=== PATIENT | male | born 1940 | race Caucasian/White ===

== ENCOUNTER 2018-12-01 16:05 | Observation (INO) | payer MEDICARE, BC ==
[2018-12-01 16:20] LABS: #Basophils 0.1 thou/uL (0.0-0.2); #Eosinphils 0.2 thou/uL (0.0-0.7); #Lymphocytes 1.4 thou/uL (1.20-3.40); %Basophils 0.8 % (0.0-1.0); %Eosinophils 2.4 % (0.0-10.0); %Lymphocytes 17.9 % (21.0-51.0); %Monocytes 12.9 % (0.0-10.0); Hemoglobin 16.2 g/dL (14.0-18.0); Mean Corpuscular HGB CONC 33.2 g/dL (32.0-36.0); Mean Corpuscular Hemoglobin 29.1 pg (27.0-31.0); Mean Corpuscular Volume 87.5 fL (78.0-98.0); Platelet Count 232 thou/uL (130-400); Red Blood Cell (RBC) Count 5.58 mill/uL (4.70-6.10); White Blood Cell (WBC) Count 7.5 thou/uL (4.8-10.8)
[2018-12-01 16:27] LABS: PTT 28.7 SEC (22.9-36.1); Prothrombin Time 13.2 SEC (12.0-14.7)
--- NOTE | 2018-12-01 16:28 | CT ---
CT BRAIN WITHOUT CONTRAST: HISTORY: Slurred speech status resolved. Stroke protocol FINDINGS: No evidence of acute infarct, hemorrhage, midline shift or abnormal extra-axial fluid collections is seen. The ventricular size is appropriate and the basilar cisterns are patent. The bony calvarium is intact. The visualized paranasal sinuses and mastoid air cells are well aerated. IMPRESSION: No CT evidence of acute intracranial process. Discussed over the telephone with ER physician Dr. Rodriguez at 4:24 PM
[2018-12-01 16:33] LABS: ALT (SGPT) 20 U/L (8-55); AST (SGOT) 12 U/L (5-34); Albumin 4.5 g/dL (3.4-4.8); Alkaline Phosphatase 84 U/L (40-150); Anion Gap 9 mmol/L (10-20); BUN (Urea Nitrogen) 16 mg/dL (8.4-25.7); Bilirubin, Total 0.6 mg/dL (0.2-1.2); CK (CPK) 45 U/L (30-200); Calc. Creatinine Clearance 0 mL/min (70-130); Calcium 10.8 mg/dL (7.8-10.44); Carbon Dioxide 32 mmol/L (23-31); Chloride 99 mmol/L (98-107); Estimated GFR-MDRD 57; Globulin 2.9 g/dL (2.4-3.5); Glucose 205 mg/dL (83-110); Protein, Total 7.4 g/dL (5.8-8.1); Sodium 136 mmol/L (136-145)
[2018-12-01] MEDS ORDERED: Aspirin Chewable 81 MG TAB ONE (17:44)
[2018-12-01 18:53] VITALS: BMI 35.1
[2018-12-01] MEDS ORDERED: Senokot S 8.6-50 MG TAB PO PRN (21:03)
[2018-12-01] MEDS ORDERED: Acetaminophen 325 MG TAB PO PRN (21:03)
[2018-12-02 05:10] LABS: #Eosinphils 0.2 thou/uL (0.0-0.7); #Lymphocytes 1.6 thou/uL (1.20-3.40); #Monocytes 1.1 thou/uL (0.11-0.59); #Neutrophils 5.8 thou/uL (1.40-6.50); %Basophils 0.5 % (0.0-1.0); %Eosinophils 2.6 % (0.0-10.0); %Lymphocytes 17.9 % (21.0-51.0); Hemoglobin 14.8 g/dL (14.0-18.0); Mean Corpuscular HGB CONC 33.5 g/dL (32.0-36.0); Mean Corpuscular Hemoglobin 29.3 pg (27.0-31.0); Mean Corpuscular Volume 87.3 fL (78.0-98.0); Mean Platelet Volume 7.8 fL (7.4-10.4); Platelet Count 190 thou/uL (130-400); RBC Distribution Width 12.2 % (11.5-14.5); Red Blood Cell (RBC) Count 5.07 mill/uL (4.70-6.10); White Blood Cell (WBC) Count 8.7 thou/uL (4.8-10.8)
--- NOTE | 2018-12-02 05:13 | HP ---
CHIEF COMPLAINT: Expressive aphasia. HISTORY OF PRESENT ILLNESS: Mr. Wei is a 78-year-old male, who was at his orthopedic office today having his left knee evaluated as he has been having pain in that knee over the last week. While he was there, orthopedic doctor noticed that he was having some slurred speech, word salad, expressive aphasia, lasted about 30 minutes. The patient reports that he could not tell the doctor anything. He was trying to tell him that his was coming and some other pertinent things, but could not get the words out. The patient denies any weakness or numbness. Family reports that he has had a small stroke in the past. The patient reports that this was after what he considers a reaction to Viagra. reports that he has had some residual right-sided facial droop since that time, but reports that today it looks worse than normal. The patient denies any headache, nausea, vomiting, chest pain, or shortness of breath and was subsequently admitted to the stroke unit for further management. REVIEW OF SYSTEMS: Reports speech changes earlier today, slurred speech, but reports it is much better. does report that right side of his face is more drooped than normal. All other systems are reviewed and are negative unless mentioned in the HPI. PAST MEDICAL HISTORY: History of prostate cancer, which was treated with some radiation, hypertension, and hyperlipidemia. PAST SURGICAL HISTORY: He has had bilateral knee replacements. PSYCHIATRIC HISTORY: None. SOCIAL HISTORY: Drinks socially. Denies any drug use. Denies any smoking history. KNOWN ALLERGIES: None. CURRENT MEDICATIONS: 1. Losartan/hydrochlorothiazide once a day. 2. Pravastatin . 3. Flomax 0.4 mg daily. 4. Aspirin 81 mg twice a week. PHYSICAL EXAMINATION: VITAL SIGNS: Blood pressure 153/67, pulse is 76, respirations 16, pO2 sats 97% on room air, temp is 98.6. CONSTITUTIONAL: The patient appears nontoxic, is pain-free. He is alert and oriented to person, place, and time. HEENT: Head is atraumatic and normocephalic. Eyes; eyelids are normal to inspection. Pupils are equally round and reactive to light. ENT; mouth exam is normal. Mucous membranes are moist. NECK: Normal range of motion. Trachea is midline. RESPIRATORY/CHEST: Breath sounds are clear. Movement is symmetrical. CARDIOVASCULAR: Regular heart rate and rhythm. Heart sounds are normal. ABDOMEN: Nontender. Bowel sounds are heard. BACK: Normal inspection. No CVA tenderness. EXTREMITIES: Upper extremity, motor strength is normal. Range of motion is normal. Sensation is intact. Radial pulses are normal. Lower extremity, normal inspection. Normal range of motion. Motor strength is normal. Sensation is intact. Pedal pulses are equal bilaterally. No edema is noted. NEUROLOGIC: He is alert and oriented to person, place, and time. Speech is normal. Memory is normal. Cranial nerves are intact. No focal motor or sensory deficits. SKIN: Warm and dry, normal in color. PSYCH: Normal affect. IMAGING: EKG in the emergency room shows a normal sinus rhythm, beats per minute 85, axis is left. A CT of the brain shows no acute findings. ASSESSMENT AND PLAN: 1. Expressive aphasia, slurred speech, lasting for 30 minutes today with some residual right-sided facial droop. We will order an MRI of the brain in the morning, carotid ultrasounds, and echocardiogram. We will check lipids, TSH, coagulation panel. 2. Hypertension. We will restart home medications. 3. History of prostate cancer with difficulty with the urinary stream. We will continue the Flomax. Full-strength aspirin has been given. We will continue daily. 4. PT/OT. Stroke Team has been requested for an evaluation. 5. Deep venous thrombosis and gastrointestinal prophylaxis will be started. 6. Hospital course will be dependent on clinical findings. Job ID: [id number]
[2018-12-02 05:36] LABS: ALT (SGPT) 17 U/L (8-55); AST (SGOT) 10 U/L (5-34); Albumin 3.8 g/dL (3.4-4.8); Alkaline Phosphatase 68 U/L (40-150); Anion Gap 11 mmol/L (10-20); BUN (Urea Nitrogen) 15 mg/dL (8.4-25.7); Bilirubin, Total 0.7 mg/dL (0.2-1.2); Calc. Creatinine Clearance 86 mL/min (70-130); Calcium 9.7 mg/dL (7.8-10.44); Carbon Dioxide 28 mmol/L (23-31); Cardiac Risk 4.4 (Less than 4.5); Chloride 102 mmol/L (98-107); Cholesterol 151 mg/dl (< 200 Desired); Estimated GFR-MDRD 71; Globulin 2.5 g/dL (2.4-3.5); Glucose 154 mg/dL (83-110); HDL Cholesterol 34 mg/dL (>60 Neg Risk); LDL Cholesterol, Calculated 94 mg/dL; Potassium 3.6 mmol/L (3.5-5.1); Protein, Total 6.3 g/dL (5.8-8.1); Sodium 137 mmol/L (136-145); Triglycerides 117 mg/dL (Less than 150)
--- NOTE | 2018-12-02 08:32 | ULT ---
BILATERAL CAROTID DUPLEX ULTRASOUND: HISTORY: Slurred speech TECHNIQUE: Grayscale, color-flow and spectral Doppler ultrasound imaging of the extracranial carotid artery syst ems was performed bilaterally. FINDINGS: Minimal plaque is seen. The peak systolic velocity in the right ICA measures 49 cm/s with an end-diastolic velocity of 7 cm/s and a systolic ratio of 0.52. The peak systolic velocity in the left ICA measures 78 cm/s with an end-diastolic velocity of 16 cm/s and a systolic ratio of 0.66. Antegrade flow is seen in the left vertebral artery. Flow was not obtained in the right vertebral art priscila. IMPRESSION: No evidence of hemodynamically significant stenosis in either ICA.
[2018-12-02] MEDS ORDERED: Losartan/Hydrochlorothiazide 100 mg/25 mg Tablet PO SCH (09:00)
[2018-12-02] MEDS ORDERED: Famotidine 20 MG TAB PO SCH (09:00)
[2018-12-02] MEDS ORDERED: Enoxaparin Sodium 40 MG/0.4 ML SYRINGE SC SCH (09:00)
[2018-12-02] MEDS ORDERED: Aspirin 325 MG TAB PO SCH (09:00)
--- NOTE | 2018-12-02 12:56 | MRI ---
MRI BRAIN NONCONTRAST: 12/02/18 HISTORY: 78-year-old male with acute stroke symptoms, dysarthria and facial droop. TIA. FINDINGS: The ventricles are normal in size and configuration. There is no restricted diffusion, midline shift or any other mass effect, recent intraaxial hemorrhage, or extraaxial fluid collection. There are m any small T2-hyperintensities in the cerebral white matter consistent with mild chronic ischemic whit e matter changes due to mild microvascular atherosclerosis. IMPRESSION: 1. Mild-moderate chronic ischemic white matter changes. 2. Otherwise negative. jnr POS: [facility]
[2018-12-02 16:03] VITALS: BP 154/71; TEMP 98.3
[2018-12-02] MEDS ORDERED: Tamsulosin HCl 0.4 MG CAP PO SCH (21:00)
[2018-12-02] MEDS ORDERED: Pravastatin Sodium 40 MG TAB PO SCH (21:00)
--- NOTE | 2018-12-03 04:19 | DIS ---
DATE OF ADMISSION: 12/01/2018 DATE OF DISCHARGE: 12/02/2018 CHIEF COMPLAINT: Expressive aphasia. FINAL DIAGNOSES: 1. Expressive aphasia/slurred speech, cerebrovascular accident workup negative, likely transient ischemic attack in the setting of multiple risk factors as outlined below. 2. Untreated type 2 diabetes mellitus, last hemoglobin A1c 7.9% per patient. 3. Hyperlipidemia. 4. Hypertension. 5. Obesity. 6. Osteoarthritis, status post bilateral knee replacements. 7. History of prostate cancer. Brief. HOSPITAL COURSE: The patient is a very pleasant 78-year-old male with past medical history as outlined above, who was visiting his orthopedic surgeon for outpatient followup, when he began having some slurred speech, word salad, and expressive aphasia, which lasted about 30 minutes. The patient reports that he could not tell his doctor anything. He was trying to tell him that his was coming up to the office, but could not use any words. He denied any focal weaknesses or numbness. The patient presented to the [facility] for further workup and treatment. He did undergo a stroke workup, which was negative. CT of the brain showed no acute intracranial abnormality. His MRI showed no stroke, but he did have mild to moderate chronic ischemic white matter changes. Echocardiogram showed normal left ventricular systolic function with diastolic dysfunction noted. His carotid Doppler was negative. The patient's symptoms have completely resolved. He states to me that he quit taking his aspirin daily, but rather twice a week as he saw on a news program. The patient states that his last hemoglobin A1c was 7.9%. It will be rechecked soon through his primary care physician. CONDITION AT DISCHARGE: Stable. DISCHARGE DISPOSITION: Home. DISCHARGE MEDICATIONS: He will continue his home medications of: 1. Losartan/hydrochlorothiazide 100 mg/25 mg tablet one tablet p.o. daily. 2. Pravastatin 80 mg tablet daily. 3. Tamsulosin 0.4 mg tablet daily. New medication will be: 1. Aspirin 81 mg one tablet p.o. daily. FOLLOWUP: He already has a followup scheduled with his primary care physician in the next 7 to 10 days. He will continue aggressive risk factor modification including diet, exercise, and continue his aspirin. My recommendation is that he also aggressively treat his type 2 diabetes mellitus given his recent TIA. All findings have been discussed with the patient at length. The care of this patient has been discussed with Dr. Coburn who agrees with the plan and discharge as above. The patient will return to the hospital with any return of his symptoms. Job ID: [id number]
== END 2018-12-02 19:29 | disposition home or self-care (01) ==
LOC: ERS 16:05 → 2SE 18:45
PROVIDERS: ADMIT Internal Medicine; ATTEND Internal Medicine
DX: R47.01 Aphasia (principal); R47.81 Slurred speech; E11.9 Type 2 diabetes mellitus without complications; E78.5 Hyperlipidemia, unspecified; I10 Essential (primary) hypertension; E66.9 Obesity, unspecified; Z68.35 Body mass index [BMI] 35.0-35.9, adult; Z85.46 Personal history of malignant neoplasm of prostate; Z79.82 Long term (current) use of aspirin; Z79.899 Other long term (current) drug therapy; Z96.653 Presence of artificial knee joint, bilateral
CPT/HCPCS: 70450; 70551; 80053; 80061; 82550; 82962; 84484; 85025; 85610; 85730; 93005; 93306; 93880; 96372; 97139 ×3; 99285; G0378 ×2; 36415; 36416; 84443; J1650

== ENCOUNTER 2018-12-03 12:42 | Emergency (ER) | payer MEDICARE, BC ==
[2018-12-03 13:24] LABS: Prothrombin Time 13.3 SEC (12.0-14.7)
[2018-12-03 13:25] LABS: PTT 28.8 SEC (22.9-36.1)
--- NOTE | 2018-12-03 13:26 | CT ---
CT Brain WO Con: 12/03/2018 1:04 PM CLINICAL HISTORY: Confusion and speech problems. IMAGING TECHNIQUE: Multiple CT images were obtained of the brain without IV contrast. COMPARISON: CT the brain dated 12/01/2018 and MR the brain dated 12/02/2018 FINDINGS: Infarct: No acute infarct evident. Hemorrhage: None.. Hydrocephalus: None.. Basal cisterns: Normal.. Cerebral parenchyma: There is stable mild chronic small vessel white matter ischemic change.. Midline shift: None.. Cerebellum: Normal. Brainstem: Normal. OTHER: Calvarium: Intact.. Visualized Paranasal sinuses: Clear.. Extracranial soft tissues:Normal. IMPRESSION: No acute intracranial abnormality.
[2018-12-03 13:29] LABS: Eosinophils 2 % (0-10); Hemoglobin 15.7 g/dL (14.0-18.0); Lymphocytes 7 % (21-51); MDiff Complete? YES; Mean Corpuscular HGB CONC 33.4 g/dL (32.0-36.0); Mean Corpuscular Hemoglobin 28.4 pg (27.0-31.0); Mean Corpuscular Volume 84.8 fL (78.0-98.0); Mean Platelet Volume 8.2 fL (7.4-10.4); Monocytes 15 % (0-10); Neutrophil 70 % (42-75); Platelet Count 202 thou/uL (130-400); Platelet Morphology Comment Appears Adequate; Reactive Lymphocytes 5 % (0-10); Red Blood Cell (RBC) Count 5.54 mill/uL (4.70-6.10)
[2018-12-03] MEDS ORDERED: Aspirin Chewable 81 MG TAB ONE (13:30)
[2018-12-03 13:33] LABS: ALT (SGPT) 20 U/L (8-55); AST (SGOT) 11 U/L (5-34); Albumin 4.2 g/dL (3.4-4.8); Alkaline Phosphatase 77 U/L (40-150); Anion Gap 14 mmol/L (10-20); BUN (Urea Nitrogen) 15 mg/dL (8.4-25.7); Bilirubin, Total 0.7 mg/dL (0.2-1.2); CK (CPK) 46 U/L (30-200); Calc. Creatinine Clearance 0 mL/min (70-130); Carbon Dioxide 23 mmol/L (23-31); Chloride 103 mmol/L (98-107); Estimated GFR-MDRD 64; Globulin 2.8 g/dL (2.4-3.5); Glucose 187 mg/dL (83-110); Potassium 3.8 mmol/L (3.5-5.1); Sodium 136 mmol/L (136-145)
--- NOTE | 2018-12-03 13:54 | RAD ---
PORTABLE CHEST 1 VIEW: Date: 12/03/18 Time: 1343 hours HISTORY: Confusion, speech problems. FINDINGS: The heart size is normal. The lungs are expanded without focal areas of consolidation, pneumothoraces , or pleural effusions. There are degenerative changes in the acromioclavicular joints. IMPRESSION: No acute process. POS: [facility]
== END 2018-12-03 14:01 | disposition home or self-care (01) ==
LOC: SCSER 12:42
DX: G45.9 Transient cerebral ischemic attack, unspecified (principal); Z79.899 Other long term (current) drug therapy
CPT/HCPCS: 36416; 70450; 71045; 80053; 82550; 84484; 85025; 85610; 85730; 93005

== ENCOUNTER 2020-01-20 13:23 | Emergency (ER) | payer MEDICARE, BC ==
--- NOTE | 2020-01-20 13:45 | CT ---
CT BRAIN WITHOUT CONTRAST: 01/20/20 HISTORY: Level I stroke. Left leg numbness, history of TIA. COMPARISON: 12/03/18. Changes of cortical atrophy and chronic small vessel ischemic disease again seen. The ventricular siz e is stable and the basilar cisterns patent. No evidence of acute infarct, hemorrhage, midline shift or abnormal extra-axial fluid collections seen. The bony calvarium is intact. The visualized paranasa l sinuses and mastoid air cells are well aerated. IMPRESSION: No CT evidence of acute intracranial process. Findings are discussed over the telephone with ER physician, Dr. Aaron Vargas at 1:41 p.m. Kaycee REYES
[2020-01-20 13:46] LABS: #Eosinphils 0.1 thou/uL (0.0-0.7); #Lymphocytes 1.1 thou/uL (1.20-3.40); #Monocytes 1.1 thou/uL (0.11-0.59); #Neutrophils 7.4 thou/uL (1.40-6.50); %Basophils 0.3 % (0.0-1.0); %Eosinophils 1.2 % (0.0-10.0); %Monocytes 11.7 % (0.0-10.0); Hemoglobin 14.6 g/dL (14.0-18.0); Mean Corpuscular HGB CONC 33.7 g/dL (32.0-36.0); Mean Corpuscular Hemoglobin 29.4 pg (27.0-31.0); Mean Corpuscular Volume 87.1 fL (78.0-98.0); Mean Platelet Volume 7.6 fL (7.4-10.4); Platelet Count 252 thou/uL (130-400); RBC Distribution Width 12.2 % (11.5-14.5); Red Blood Cell (RBC) Count 4.97 mill/uL (4.70-6.10); White Blood Cell (WBC) Count 9.7 thou/uL (4.8-10.8)
[2020-01-20 13:53] LABS: PTT 29.7 sec (22.9-36.1); Prothrombin Time 12.7 sec (12.0-14.7)
[2020-01-20 14:01] LABS: ALT (SGPT) 19 U/L (8-55); AST (SGOT) 14 U/L (5-34); Albumin 4.2 g/dL (3.4-4.8); Alkaline Phosphatase 79 U/L (40-110); Anion Gap 10 mmol/L (10-20); BUN (Urea Nitrogen) 12 mg/dL (8.4-25.7); Bilirubin, Total 0.5 mg/dL (0.2-1.2); CK (CPK) 68 U/L (30-200); Calc. Creatinine Clearance 0 mL/min (70-130); Calcium 9.6 mg/dL (7.8-10.44); Carbon Dioxide 30 mmol/L (23-31); Chloride 100 mmol/L (98-107); Estimated GFR-MDRD 61; Glucose 112 mg/dL (83-110); Potassium 4.1 mmol/L (3.5-5.1); Protein, Total 7.2 g/dL (5.8-8.1); Sodium 136 mmol/L (136-145)
--- NOTE | 2020-01-20 14:07 | RAD ---
EXAM: Chest one view: HISTORY: Altered mental status, numbness left leg COMPARISON: 12/03/2018 FINDINGS: Heart size: Within normal limits. Lungs: Clear of acute process. No evidence for confluent pneumonia, pleural effusion, acute edema, or pneumothorax, or other signifi cant acute process. IMPRESSION: No significant acute intrathoracic disease. Stable exam
--- NOTE | 2020-01-20 14:10 | CT ---
CT ANGIOGRAM NECK WITH CONTRAST CT ANGIOGRAM BRAIN WITH CONTRAST: DATE: 01/20/2020 HISTORY: 79-year-old male level of acute stroke. This level 1 stroke protocol report was given by Dr. Martinez to Dr. Vargas of the ER at 2:04 PM 01/20/2020 TECHNIQUE: After IV contrast injection, arterial bolus chasing technique scan performed from AP window to vertex of head. Coronal and sagittal 3-D MIP reconstructions. FINDINGS: No high-grade stenosis or occlusion involving brachiocephalic, bilateral subclavian, bilateral common carotid, bilateral internal carotid,, bilateral cervical vertebral, bilateral intracranial vertebral, basilar, bilateral slot attendant, bilateral proximal superior cerebellar, bilateral M1 MCAs, and bi lateral A1 and A2 PALAK, arteries. Focal calcified plaque at origins of bilateral vertebral arteries causing moderate or severe stenosis . Mild atherosclerotic irregularity of P1 segment of left HEAVY LIFT RIGGER. Cervical spondylosis with high-grade mul tilevel degenerative facet disease. IMPRESSION: 1) no M1 segment middle cerebral artery thrombosis or occlusion. 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
[2020-01-20] MEDS ORDERED: Iopamidol 370 76% 100 ML VIAL ONE (14:36)
[2020-01-20] MEDS ORDERED: Aspirin 325 MG TAB ONE (14:37)
[2020-01-20 15:20] LABS: Bilirubin Negative (Negative); Blood, Urine Negative (Negative); Clarity Clear (Clear); Glucose, Urine (Dipstick) 30 mg/dL (Negative); Ketone, Urine Negative (Negative); Leukocyte Negative Leu/uL (Negative); Nitrite Negative (Negative); Protein, Urine (Dipstick) Negative (Neg-Trace); Urobilinogen Normal mg/dL (Less than 2)
--- NOTE | 2020-01-23 15:45 | CT ---
CT ANGIOGRAM NECK WITH CONTRAST CT ANGIOGRAM BRAIN WITH CONTRAST: DATE: 01/20/2020 HISTORY: 79-year-old male level of acute stroke. This level 1 stroke protocol report was given by Dr. Martinez to Dr. Vargas of the ER at 2:04 PM 01/20/2020 TECHNIQUE: After IV contrast injection, arterial bolus chasing technique scan performed from AP window to vertex of head. Coronal and sagittal 3-D MIP reconstructions. FINDINGS: No high-grade stenosis or occlusion involving brachiocephalic, bilateral subclavian, bilateral common carotid, bilateral internal carotid,, bilateral cervical vertebral, bilateral intracranial vertebral, basilar, bilateral lens shaper grinder, bilateral proximal superior cerebellar, bilateral M1 MCAs, and bi lateral A1 and A2 PALAK, arteries. Focal calcified plaque at origins of bilateral vertebral arteries causing moderate or severe stenosis . Mild atherosclerotic irregularity of P1 segment of left CLINICAL NURSING INSTRUCTOR. Cervical spondylosis with high-grade mul tilevel degenerative facet disease. IMPRESSION: 1) no M1 segment middle cerebral artery thrombosis or occlusion. 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
== END 2020-01-20 16:02 | disposition home or self-care (01) ==
LOC: ERS 13:23
DX: G45.9 Transient cerebral ischemic attack, unspecified (principal); I10 Essential (primary) hypertension; Z79.899 Other long term (current) drug therapy
CPT/HCPCS: 36416; 70450; 70496; 70498; 71045; 80053; 81003; 82550; 84484; 85025; 85610; 85730; 93005; 96360; Q9967